=== PATIENT | female | born 1940 | race Caucasian/White ===

== ENCOUNTER → 2019-10-05 | Outpatient (CLI) | payer MEDICARE, MEDICAID ==
--- NOTE | 2019-10-05 11:09 | RADIOLOGY REPORT (SQ) ---
EXAM DESCRIPTION: CT HEAD WITHOUT COMPLETED DATE/TIME: 10/05/2019 10:08 am REASON FOR STUDY: H53.9 UNSPECIFIED VISUAL DISTURBANCE, H53.8 OTHER VISUAL DISTURBANCES H53.9 UNSPE CIFIED VISUAL DISTURBANCE H53.8 OTHER VISUAL DISTURBANCES I77.9 DISORDER OF ARTERIES AND ARTERIOLES , UNSPECIFIED COMPARISON: None. TECHNIQUE: Axial images acquired through the brain without intravenous contrast. Images reviewed wi th bone, brain and subdural windows. Additional sagittal and coronal reconstructions were generated. Images stored on PACS. All CT scanners at this facility use dose modulation, iterative reconstruction, and/or weight based d osing when appropriate to reduce radiation dose to as low as reasonably achievable (ALARA). [facility]: Dose Right [facility]: CareDose [facility]: Dose Right [facility]: Teradose 4D [facility]: [employer]nova RADIATION DOSE: CT Rad equipment meets quality standard of care and radiation dose reduction techniq ues were employed. CTDIvol: 48.6 mGy. DLP: 880 mGy-cm. mGy. LIMITATIONS: None. FINDINGS: VENTRICLES: Normal in size and contour for patient age. CEREBRUM: No masses. No hemorrhage. No midline shift. Hypodensities within the bilateral insula wi th near CSF attenuation suggestive of chronic lacunar infarcts. Additional focal areas of hypoattenu ation within the bilateral basal ganglia suggestive of age-indeterminate lacunar infarcts. No eviden ce of large vascular territory infarct. Remaining redd-white differentiation is preserved. CEREBELLUM: No masses. No hemorrhage. No alteration of density. No evidence for acute infarction. EXTRAAXIAL SPACES: No fluid collections. No masses. ORBITS AND GLOBE: No intra- or extraconal masses. Normal contour of globe without masses. CALVARIUM: No fracture. PARANASAL SINUSES: No fluid or mucosal thickening. SOFT TISSUES: No mass or hematoma. OTHER: No other significant finding. IMPRESSION: Focal areas of hypoattenuation within the bilateral insula and basal ganglia, likely chr onic lacunar infarcts but technically age indeterminate secondary to lack of prior exams. If concern for acute ischemic event MRI should be considered. No evidence of large vascular territory infarct or other acute intracranial process. EVIDENCE OF ACUTE STROKE: NO. COMMENT: Quality ID # [id number]: Final reports with documentation of one or more dose reduction techniques (e.g., Automated exposure control, adjustment of the mA and/or kV according to patient size, use of iterative reconstruction technique) TECHNICAL DOCUMENTATION: JOB ID: [id number] [employer]- All Rights Reserved Reading location - IP/workstation name: [email or web address]
--- NOTE | 2019-10-05 13:55 | RADIOLOGY REPORT (SQ) ---
EXAM DESCRIPTION: CAROTID DOPPLER COMPLETED DATE/TIME: 10/05/2019 11:45 am REASON FOR STUDY: I77.9 I10 VISUAL DISTURBANCE H53.9 UNSPECIFIED VISUAL DISTURBANCE H53.8 OTHER SUAL DISTURBANCES I77.9 DISORDER OF ARTERIES AND ARTERIOLES, UNSPECIFIED COMPARISON: None. TECHNIQUE: Grayscale ultrasound, Doppler velocity and spectra, and color Doppler images acquired of the extra-cranial carotid and vertebral arteries. Images stored on PACS. LIMITATIONS: None. FINDINGS: RIGHT CAROTID CCA Velocities: Normal waveform and velocity. Grayscale evaluation demonstrates scattered eccentric hyperechoic plaque with less than 50% luminal stenosis. ICA Velocities Peak systolic 127 cm/s. End diastolic 31 cm/s. Proximal ICA/CCA peak systolic ratio 1.4. Normal waveform. Grayscale evaluation demonstrates scattered eccentric hyperechoic plaque with less than 50% luminal stenosis. LEFT CAROTID CCA Velocities: Normal waveform and velocity. Grayscale evaluation without significant plaque identi fied. ICA Velocities Peak systolic 90 cm/s. End diastolic 24 cm/s. Proximal ICA/CCA peak systolic ratio 1.9. Normal spectral waveform. Grayscale evaluation with eccentric hyperechoic plaque with less than 50% luminal stenosis. VERTEBRAL ARTERIES: Antegrade flow. Normal waveforms. SUBCLAVIAN ARTERIES: Not imaged. OTHER: No other significant finding. IMPRESSION: 1. 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 2. Less than 50% stenosis of the left ICA. 3. Bilateral vertebral arteries are antegrade. COMMENT: Quality ID #[id number]: Velocity criteria are extrapolated from the diameter data as defined by t he Society of Radiologists in Ultrasound Consensus Conference. Radiology 2003: 229; 340-346. TECHNICAL DOCUMENTATION: JOB ID: [id number] [employer]- All Rights Reserved Reading location - IP/workstation name: [email or web address]
== END ==
LOC: RAD 09:19
PROVIDERS: ATTEND Nurse Practitioner Family
DX: H53.9 Unspecified visual disturbance (principal); H53.8 Other visual disturbances; I77.9 Disorder of arteries and arterioles, unspecified
CPT/HCPCS: 70450; 93880

== ENCOUNTER → 2019-10-12 | Outpatient (CLI) | payer MEDICARE, MEDICAID ==
--- NOTE | 2019-10-12 16:11 | RADIOLOGY REPORT (SQ) ---
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 TECHNIQUE: Multiplanar imaging includes non-contrasted T1, T2, FLAIR, and diffusion with ADC map seq uences. Images stored on PACS. LIMITATIONS: None. FINDINGS: ANATOMY: No anomalies. Normal vascular flow voids. Pituitary fossa normal. CSF SPACES: Prominence of ventricles and CSF spaces. CEREBRUM: Old lacunar infarcts in the basal ganglia. High signal intensity lesions scattered through out the white matter on FLAIR imaging with distribution suggesting micro-vascular ischemic changes. No evidence of hemorrhage, mass, or extraaxial fluid collection. POSTERIOR FOSSA: No signal alteration. No hemorrhage. No edema, masses or mass effect. Internal samy tory canals, cerebello-pontine angles, mastoids normal. DIFFUSION IMAGING: Negative for acute or sub-acute infarction. ORBITS: No masses. Globes normal. PARANASAL SINUSES: No fluid levels. Mucosa normal. OTHER: No other significant finding. IMPRESSION: Chronic ischemic changes. EVIDENCE OF ACUTE STROKE: NO. TECHNICAL DOCUMENTATION: JOB ID: [id number] [employer]- All Rights Reserved Reading location - IP/workstation name: [email or web address]
== END ==
LOC: RAD 13:11
PROVIDERS: ATTEND Nurse Practitioner Family
DX: I63.50 Cerebral infarction due to unspecified occlusion or stenosis of unspecified cerebral artery (principal); H53.9 Unspecified visual disturbance; F17.200 Nicotine dependence, unspecified, uncomplicated; R93.0 Abnormal findings on diagnostic imaging of skull and head, not elsewhere classified; I65.29 Occlusion and stenosis of unspecified carotid artery
CPT/HCPCS: 70551